=== PATIENT | male | born 1960 | race Caucasian/White ===

== ENCOUNTER 2021-03-23 10:36 | Outpatient (CLI) | payer OTHER, SELFPAY ==
--- NOTE | 2021-03-23 10:56 | XR_ITS ---
WS: [id number] XR lumbar spine 2-3V* [id number] REASON FOR EXAM: PAIN FINDINGS: No significant compression deformity of lumbar vertebra right. No focal lesion. The disc spaces are relatively well preserved with mild narrowing of the L1-L2, L2-L3, and L5-S1 disc spaces. Mild degenerative changes are seen in the facet joints L3-S1. XR/XR lumbar spine 2-3V* [id number] IMPRESSION: Mild changes of degenerative spondylosis. No focal vertebral body abnormality.
--- NOTE | 2021-03-23 10:56 | XR_ITS ---
WS: [id number] XR cervical spine 3V* [id number] REASON FOR EXAM: PAIN FINDINGS: The odontoid is intact. No focal vertebral body lesion or significant compression deformity is noted. There is mild to moderate narrowing of the interspace at C3-C4 and C6-C7. There are large anterior inferior osteophytes from C2 and C3. There is a large osteophyte from C3 whi ch extends anteriorly and superiorly to abut the osteophyte from C3. Additional osteophytosis from C4 to C7 essentially fuses at these levels anteriorly. No significant facet joint abnormality is identified. XR/XR cervical spine 3V* [id number] IMPRESSION: Large osteophytes from C2 to C7 with anterior fusion of C4-C7 anteriorly.
== END 2021-03-23 10:37 | disposition home or self-care (01) ==
LOC: RAD 10:43
PROVIDERS: Visit Provider Dermatology
DX: M54.5 Low back pain (principal); M54.2 Cervicalgia; M25.78 Osteophyte, vertebrae
CPT/HCPCS: 72040; 72100